=== PATIENT | female | born 1945 | race Caucasian/White ===

== ENCOUNTER 2023-04-10 17:34 | Inpatient (IN) | payer MEDICARE, OTHER ==
[~2023-04-10] VITALS: Ht 162.6 cm; Wt 64.0 kg
[~2023-04-10 17:34] MED LIST: ASPI81TA52 PO; CALC-729 PO; CETI-1 PO; DOCU100C33 PO; DULO30CA52 PO; FERR325T29 PO; IPRA3AMP31 IH; LACT1CAP65 PO; LEVO112T52 PO; LOSA50TA64 PO; METF-1203 PO; METO-384 PO; MULT-1085 PO; PANT40TA39 PO; ROSU10TA28 PO; VIT1TABL95 PO
[2023-04-10 18:42] LABS: BASOPHILS # (AUTO) 0.1 X10'3 (0-0.2); BASOPHILS % (AUTO) 0.6 % (0-1); EOSINOPHILS % (AUTO) 0 % (0-6); LYMPHOCYTES # (AUTO) 0.4 X10'3 (1.1-4.8); LYMPHOCYTES % (AUTO) 3.3 % (21-51); MEAN CORPUSCULAR HEMOGLOBIN 31.6 PG (27.0-31.0); MEAN CORPUSCULAR HGB CONC 31.2 g/dL (33.0-36.5); MEAN CORPUSCULAR VOLUME 101.2 FL (78-98); MEAN PLATELET VOLUME 9.3 FL (7.4-10.4); MONOCYTES # (AUTO) 0.5 X10'3 (0-0.9); MONOCYTES % (AUTO) 4.4 % (2-12); NEUTROPHILS # (AUTO) 11.4 X10'3 (1.8-7.7); NEUTROPHILS % (AUTO) 91.7 % (42-75); PLATELET COUNT 278 X10'3 (140-440); RED CELL DISTRIBUTION WIDTH 16.9 % (11.5-14.5); WHITE BLOOD COUNT 12.4 X10'3 (4.5-11.0)
[2023-04-10 18:49] LABS: HEMATOCRIT 16.1 % (35.0-45.0)
[2023-04-10] MEDS ORDERED: methylPREDNISolone sod succ 125mg/2ml vial IV ONE (18:50)
[2023-04-10] MEDS ORDERED: normal saline 1000ML IV soln IVB ONE (18:50)
[2023-04-10] MEDS ORDERED: albuterol 2.5 MG/3 ML nebule CONTNEB PRN (18:50)
[2023-04-10 18:58] LABS: ALANINE AMINOTRANSFERASE 13 U/L (12-78); ALBUMIN 2.8 G/DL (3.4-5.0); ALBUMIN/GLOBULIN RATIO 0.8 (1.1-1.5); ALKALINE PHOSPHATASE 73 IU/L (46-116); ANION GAP 3 (8-16); ASPARTATE AMINO TRANSFERASE 12 U/L (10-37); BILIRUBIN,TOTAL 0.2 MG/DL (0.1-1.0); BLOOD UREA NITROGEN 29 MG/DL (7-18); BUN/CREATININE RATIO 24.4 (10.0-20.0); CALCIUM 8.9 MG/DL (8.5-10.1); CHLORIDE 89 MMOL/L (99-107); CREATININE 1.19 MG/DL (0.40-0.90); GLUCOSE 352 MG/DL (70-104); POTASSIUM 5.1 MMOL/L (3.5-5.1); SODIUM 123 MMOL/L (135-145); TOTAL CARBON DIOXIDE 31.1 MMOL/L (24-32); TOTAL PROTEIN 6.3 G/DL (6.4-8.2); eCRCL 34 ML/MIN; eGFR 44 ML/MIN
[2023-04-10 19:05] LABS: PRO BRAIN NATRIURETIC PEPTIDE 1388 PG/ML (0-450)
[2023-04-10 19:35] VITALS: PULSE 88; RESP 20; O2SAT 94
[2023-04-10] MEDS ORDERED: cefepime 2g/NS 100ml ADVANTAGE 100 ML IV ONE (20:00)
[2023-04-10] MEDS ORDERED: insulin Lispro (HumaLOG) vial - multi-dose SQ ONE (20:05)
[2023-04-10] MEDS ORDERED: pantoprazole 40mg IV 80 MG in normal saline 100ml IV soln 100 ML IV ONE (20:05)
[2023-04-10 20:12] LABS: OCCULT BLOOD STOOL POSITIVE (Neg)
[2023-04-10] MEDS ORDERED: magnesium hydroxide 30ml (MOM) UD suspension PO PRN (20:40)
[2023-04-10] MEDS ORDERED: magnesium 4gm in 100ml NS 100 ML IV PRN (20:40)
[2023-04-10] MEDS ORDERED: ondansetron/PF 4mg/2ml inj IV PRN (20:40)
[2023-04-10] MEDS ORDERED: pantoprazole 40MG/NS 100ML BAG 100 ML IV ONE ×2 (20:40→20:55)
[2023-04-10] MEDS ORDERED: potassium Cl 20 mEq SR tablet PO PRN ×2 (20:40)
[2023-04-10] MEDS ORDERED: mag hydrox/Alum hydrox/simeth 30ml oral suspension PO PRN (20:40)
[2023-04-10] MEDS ORDERED: magnesium 2GM in 50ml NS 50 ML IV PRN (20:40)
[2023-04-10] MEDS ORDERED: magnesium Cl slow-release 64mg tablet PO PRN (20:40)
[2023-04-10] MEDS ORDERED: potassium Cl 40MEQ/1/2NS 520ml 520 ML IV PRN (20:40)
[2023-04-10] MEDS: normal saline 1000ml 1,000 ML IV SCH (20:40)
[2023-04-10 20:42] VITALS: PULSE 98; RESP 22; O2SAT 100
[2023-04-10] MEDS ORDERED: albuterol 2.5 MG/3 ML nebule NEB PRN (20:45)
[2023-04-10] MEDS ORDERED: dextrose 50%-water 50ml dispensing syringe IV PRN ×2 (20:45)
[2023-04-10] MEDS ORDERED: DEXTROSE 15 GM of carb/4 tabs (each vial/BOTTLE has 4 tablets) PO PRN ×2 (20:45)
[2023-04-10] MEDS ORDERED: MESSAGE TO PHARMACY PO ONE (20:45)
[2023-04-10] MEDS ORDERED: glucagon, human recombinant 1mg kit SUBCUT PRN (20:45)
[2023-04-10] MEDS: pantoprazole 40MG/NS 100ML BAG 100 ML IV SCH (22:00)
[2023-04-10 22:12] VITALS: BP 117/57; PULSE 95; RESP 27; TEMP 98.3
[2023-04-10 22:26] VITALS: BP 136/49; PULSE 96; RESP 30; TEMP 99
[2023-04-10] MEDS ORDERED: diphenhydrAMINE 25mg capsule PO ONE (22:40)
[2023-04-10] MEDS: acetaminophen 325mg tablet PO PRN (22:45)
[2023-04-10 23:16] VITALS: PULSE 97; RESP 24; O2SAT 98
[2023-04-10 23:44] LABS: BASOPHILS % (AUTO) 0 % (0-1); EOSINOPHILS % (AUTO) 0 % (0-6); LYMPHOCYTES # (AUTO) 0.2 X10'3 (1.1-4.8); LYMPHOCYTES % (AUTO) 1.9 % (21-51); MEAN CORPUSCULAR HEMOGLOBIN 31.2 PG (27.0-31.0); MEAN CORPUSCULAR VOLUME 100.6 FL (78-98); MEAN PLATELET VOLUME 9.1 FL (7.4-10.4); MONOCYTES # (AUTO) 0.1 X10'3 (0-0.9); MONOCYTES % (AUTO) 0.8 % (2-12); NEUTROPHILS # (AUTO) 11.5 X10'3 (1.8-7.7); NEUTROPHILS % (AUTO) 97.3 % (42-75); PLATELET COUNT 272 X10'3 (140-440); RED BLOOD COUNT 1.57 X10'6 (4.20-5.60); RED CELL DISTRIBUTION WIDTH 16.1 % (11.5-14.5); WHITE BLOOD COUNT 11.8 X10'3 (4.5-11.0)
[2023-04-10 23:51] LABS: HEMOGLOBIN 4.9 g/dl (12.0-16.0)
[2023-04-10 23:52] LABS: HEMATOCRIT 15.8 % (35.0-45.0)
[2023-04-11] VITALS (29 sets, daily range): BP systolic 143–190; BP diastolic 49–80; PULSE 68–114; RESP 18–48; TEMP 96.8–98.5; O2SAT 92–100
[2023-04-11 01:06] LABS: BILIRUBIN,URINE NEGATIVE (Neg); COLOR,URINE YELLOW (Yellow); GLUCOSE, URINE 500 mg/dl (Neg); KETONES,URINE NEGATIVE (Neg); LEUKOCYTE ESTERASE ,URINE NEGATIVE (Neg); NITRITES, URINE NEGATIVE (Neg); OCCULT BLOOD,URINE NEGATIVE (Neg); PH,URINE 5.5 (4.8-8.0); PROTEIN,URINE NEGATIVE (Neg); UROBILINOGEN,URINE 0.2 E.U/dL (0.2-1.0)
[2023-04-11 01:13] LABS: CLARITY,URINE SLIGHTLY CLOUDY (Clear); UA COLLECTION TYPE STRAIGHT CATH
[2023-04-11 01:14] LABS: RBC,URINE 0-2 /HPF (0-2); WBC,URINE 0-4 /HPF (0-4)
[2023-04-11 01:15] LABS: BACTERIA,URINE FEW /HPF (Neg); MUCUS STRANDS FEW /LPF (Neg); SQUAMOUS EPITHELIAL CELL,UR MODERATE /LPF (FEW)
[2023-04-11] MEDS: pantoprazole 40MG/NS 100ML BAG 100 ML IV SCH ×5 (02:58→22:00)
[2023-04-11] MEDS: pantoprazole 40mg Tablet.DR PO SCH (07:30)
[2023-04-11] MEDS ORDERED: azithromycin/NS 500mg/250ml 250 ML IV ONE ×2 (08:00→21:55)
[2023-04-11] MEDS: K and/or MAG REPLACEMENT MC SCH ×2 (08:00→20:00)
[2023-04-11] MEDS: docusate sod 100mg capsule PO SCH ×2 (08:00→21:04)
[2023-04-11 08:25] LABS: BASOPHILS % (AUTO) 0 % (0-1); EOSINOPHILS % (AUTO) 0 % (0-6); LYMPHOCYTES # (AUTO) 0.3 X10'3 (1.1-4.8); MONOCYTES # (AUTO) 0.2 X10'3 (0-0.9); NEUTROPHILS # (AUTO) 9.4 X10'3 (1.8-7.7)
[2023-04-11 08:28] LABS: LYMPHOCYTES % (AUTO) 2.9 % (21-51); MEAN CORPUSCULAR HEMOGLOBIN 32.3 PG (27.0-31.0); MEAN CORPUSCULAR HGB CONC 32.1 g/dL (33.0-36.5); MEAN CORPUSCULAR VOLUME 100.7 FL (78-98); MEAN PLATELET VOLUME 9.5 FL (7.4-10.4); MONOCYTES % (AUTO) 2.1 % (2-12); PLATELET COUNT 246 X10'3 (140-440); RED BLOOD COUNT 1.45 X10'6 (4.20-5.60); RED CELL DISTRIBUTION WIDTH 17.5 % (11.5-14.5); WHITE BLOOD COUNT 9.9 X10'3 (4.5-11.0)
[2023-04-11 08:55] LABS: HEMATOCRIT 14.6 % (35.0-45.0); HEMOGLOBIN 4.7 g/dl (12.0-16.0)
[2023-04-11] MEDS ORDERED: methylPREDNISolone sod succ 125mg/2ml vial IV ONE (08:55)
[2023-04-11] MEDS ORDERED: furosemide 20 MG/2 ML vial IV ONE ×3 (08:55→19:00)
[2023-04-11 08:56] LABS: ALBUMIN 2.6 G/DL (3.4-5.0); ANION GAP 3 (8-16); BILIRUBIN,TOTAL 0.3 MG/DL (0.1-1.0); BLOOD UREA NITROGEN 36 MG/DL (7-18); BUN/CREATININE RATIO 28.1 (10.0-20.0); CALCIUM 8.8 MG/DL (8.5-10.1); CHLORIDE 92 MMOL/L (99-107); CREATININE 1.28 MG/DL (0.40-0.90); GLUCOSE 391 MG/DL (70-104); MAGNESIUM 2.1 MG/DL (1.5-2.4); POTASSIUM 4.8 MMOL/L (3.5-5.1); SODIUM 125 MMOL/L (135-145); TOTAL CARBON DIOXIDE 30.4 MMOL/L (24-32); TOTAL PROTEIN 5.8 G/DL (6.4-8.2); eCRCL 31 ML/MIN; eGFR 40 ML/MIN
[2023-04-11 08:57] LABS: ALANINE AMINOTRANSFERASE 7 U/L (12-78); ALBUMIN/GLOBULIN RATIO 0.8 (1.1-1.5); ALKALINE PHOSPHATASE 67 IU/L (46-116); ASPARTATE AMINO TRANSFERASE 14 U/L (10-37)
[2023-04-11] MEDS ORDERED: diphenhydrAMINE 50 mg/ml inj IM ONE (12:00)
[2023-04-11] MEDS ORDERED: diphenhydrAMINE 50 mg/ml inj IV ONE (12:00)
[2023-04-11] MEDS ORDERED: APIX5TAB3 (13:07)
[2023-04-11] MEDS: insulin Lispro (HumaLOG) vial - multi-dose SQ SCH ×3 (14:17→23:06)
[2023-04-11] MEDS: ipratropium/albuterol 3ml nebule NEB SCH ×3 (16:01→23:16)
[2023-04-11] MEDS: metoprolol succinate 25mg (24-HOUR) SR. Tablet PO SCH (18:49)
[2023-04-11] MEDS ORDERED: metoprolol succinate 25mg (24-HOUR) SR. Tablet PO ONE (22:35)
[2023-04-11] MEDS: acetaminophen 325mg tablet PO PRN (23:03)
[2023-04-12] VITALS (20 sets, daily range): BP systolic 114–190; BP diastolic 58–82; PULSE 72–104; RESP 16–34; TEMP 97–98; O2SAT 94–99
[2023-04-12 00:52] LABS: BASOPHILS % (AUTO) 0.2 % (0-1); EOSINOPHILS % (AUTO) 0 % (0-6); HEMATOCRIT 27.3 % (35.0-45.0); HEMOGLOBIN 9.2 g/dl (12.0-16.0); LYMPHOCYTES # (AUTO) 0.4 X10'3 (1.1-4.8); LYMPHOCYTES % (AUTO) 2.5 % (21-51); MEAN CORPUSCULAR HEMOGLOBIN 31.3 PG (27.0-31.0); MEAN CORPUSCULAR HGB CONC 33.9 g/dL (33.0-36.5); MEAN CORPUSCULAR VOLUME 92.2 FL (78-98); MEAN PLATELET VOLUME 9.1 FL (7.4-10.4); MONOCYTES # (AUTO) 1.2 X10'3 (0-0.9); NEUTROPHILS % (AUTO) 90.3 % (42-75); PLATELET COUNT 266 X10'3 (140-440); RED BLOOD COUNT 2.96 X10'6 (4.20-5.60); RED CELL DISTRIBUTION WIDTH 16.9 % (11.5-14.5); WHITE BLOOD COUNT 16.6 X10'3 (4.5-11.0)
[2023-04-12] MEDS: pantoprazole 40MG/NS 100ML BAG 100 ML IV SCH ×5 (00:54→21:50)
[2023-04-12] MEDS: ipratropium/albuterol 3ml nebule NEB SCH ×6 (02:30→23:28)
[2023-04-12 06:37] LABS: HEMOGLOBIN 9.4 g/dl (12.0-16.0); MEAN CORPUSCULAR HGB CONC 33.4 g/dL (33.0-36.5); MEAN CORPUSCULAR VOLUME 92.9 FL (78-98); MEAN PLATELET VOLUME 9.4 FL (7.4-10.4); PLATELET COUNT 266 X10'3 (140-440); RED BLOOD COUNT 3.02 X10'6 (4.20-5.60); RED CELL DISTRIBUTION WIDTH 17.2 % (11.5-14.5)
[2023-04-12 07:05] LABS: ALANINE AMINOTRANSFERASE 23 U/L (12-78); ALBUMIN 2.9 G/DL (3.4-5.0); ALBUMIN/GLOBULIN RATIO 0.8 (1.1-1.5); ALKALINE PHOSPHATASE 72 IU/L (46-116); ANION GAP 4 (8-16); ASPARTATE AMINO TRANSFERASE 24 U/L (10-37); BILIRUBIN,TOTAL 0.5 MG/DL (0.1-1.0); BLOOD UREA NITROGEN 33 MG/DL (7-18); BUN/CREATININE RATIO 28.9 (10.0-20.0); CALCIUM 8.9 MG/DL (8.5-10.1); CHLORIDE 94 MMOL/L (99-107); CREATININE 1.14 MG/DL (0.40-0.90); GLUCOSE 224 MG/DL (70-104); POTASSIUM 4.1 MMOL/L (3.5-5.1); SODIUM 133 MMOL/L (135-145); TOTAL CARBON DIOXIDE 35.2 MMOL/L (24-32); TOTAL PROTEIN 6.4 G/DL (6.4-8.2); eCRCL 35 ML/MIN; eGFR 46 ML/MIN
[2023-04-12] MEDS: K and/or MAG REPLACEMENT MC SCH ×2 (07:50→20:12)
[2023-04-12] MEDS: docusate sod 100mg capsule PO SCH ×2 (08:00→20:15)
[2023-04-12] MEDS: metoprolol succinate 25mg (24-HOUR) SR. Tablet PO SCH (08:57)
[2023-04-12] MEDS: pantoprazole 40mg Tablet.DR PO SCH (08:57)
[2023-04-12] MEDS: insulin Lispro (HumaLOG) vial - multi-dose SQ SCH ×3 (09:36→21:46)
[2023-04-12] MEDS: methylPREDNISolone sod succ 125mg/2ml vial IV SCH ×2 (13:30→20:15)
[2023-04-12] MEDS: furosemide 20 MG/2 ML vial IV SCH (13:32)
[2023-04-12] MEDS ORDERED: DIPH25CA83 PO (17:18)
[2023-04-12] MEDS: normal saline 1000ml 1,000 ML IV SCH (20:40)
[2023-04-13] VITALS (25 sets, daily range): BP systolic 99–140; BP diastolic 47–68; PULSE 80–97; RESP 14–22; TEMP 97.4–98.2; O2SAT 93–100
[2023-04-13] MEDS: pantoprazole 40MG/NS 100ML BAG 100 ML IV SCH ×3 (02:25→13:20)
[2023-04-13] MEDS: ipratropium/albuterol 3ml nebule NEB SCH ×6 (03:11→23:34)
[2023-04-13 07:05] LABS: BASOPHILS % (AUTO) 0 % (0-1); EOSINOPHILS % (AUTO) 0 % (0-6); HEMATOCRIT 28.4 % (35.0-45.0); HEMOGLOBIN 9.3 g/dl (12.0-16.0); LYMPHOCYTES # (AUTO) 0.3 X10'3 (1.1-4.8); LYMPHOCYTES % (AUTO) 2.3 % (21-51); MEAN CORPUSCULAR HEMOGLOBIN 30.9 PG (27.0-31.0); MEAN CORPUSCULAR HGB CONC 32.8 g/dL (33.0-36.5); MEAN CORPUSCULAR VOLUME 94.3 FL (78-98); MEAN PLATELET VOLUME 9.3 FL (7.4-10.4); MONOCYTES # (AUTO) 0.4 X10'3 (0-0.9); MONOCYTES % (AUTO) 3.1 % (2-12); NEUTROPHILS # (AUTO) 12.1 X10'3 (1.8-7.7); NEUTROPHILS % (AUTO) 94.6 % (42-75); PLATELET COUNT 276 X10'3 (140-440); RED BLOOD COUNT 3.02 X10'6 (4.20-5.60); RED CELL DISTRIBUTION WIDTH 16.9 % (11.5-14.5); WHITE BLOOD COUNT 12.8 X10'3 (4.5-11.0)
[2023-04-13 07:43] LABS: ALANINE AMINOTRANSFERASE 23 U/L (12-78); ALBUMIN 2.8 G/DL (3.4-5.0); ALBUMIN/GLOBULIN RATIO 0.8 (1.1-1.5); ALKALINE PHOSPHATASE 72 IU/L (46-116); ANION GAP 2 (8-16); ASPARTATE AMINO TRANSFERASE 21 U/L (10-37); BILIRUBIN,TOTAL 0.4 MG/DL (0.1-1.0); BLOOD UREA NITROGEN 29 MG/DL (7-18); BUN/CREATININE RATIO 27.1 (10.0-20.0); CALCIUM 8.7 MG/DL (8.5-10.1); CHLORIDE 96 MMOL/L (99-107); CREATININE 1.07 MG/DL (0.40-0.90); GLUCOSE 237 MG/DL (70-104); MAGNESIUM 2.1 MG/DL (1.5-2.4); POTASSIUM 4.4 MMOL/L (3.5-5.1); SODIUM 135 MMOL/L (135-145); TOTAL CARBON DIOXIDE 36.7 MMOL/L (24-32); TOTAL PROTEIN 6.1 G/DL (6.4-8.2); eCRCL 37 ML/MIN; eGFR 50 ML/MIN
[2023-04-13] MEDS: K and/or MAG REPLACEMENT MC SCH ×2 (08:00→20:00)
[2023-04-13] MEDS: metoprolol succinate 25mg (24-HOUR) SR. Tablet PO SCH (08:00)
[2023-04-13] MEDS: docusate sod 100mg capsule PO SCH ×2 (08:08→20:51)
[2023-04-13] MEDS: methylPREDNISolone sod succ 125mg/2ml vial IV SCH ×2 (08:10→20:51)
[2023-04-13] MEDS: furosemide 20 MG/2 ML vial IV SCH (08:10)
[2023-04-13] MEDS: insulin Lispro (HumaLOG) vial - multi-dose SQ SCH ×3 (09:38→21:42)
[2023-04-13] MEDS ORDERED: MIDAZolam 1 MG/ML 5ML VIAL ONE ×2 (15:48)
[2023-04-13] MEDS ORDERED: LIDOcaine Viscous 15ml cup ONE (15:48)
[2023-04-13] MEDS ORDERED: fentaNYL/PF 50MCG/1 ML 2ML syringe ONE (15:48)
[2023-04-14] VITALS (13 sets, daily range): BP systolic 129–182; BP diastolic 60–69; PULSE 86–102; RESP 16–28; TEMP 97.6–97.8; O2SAT 97–100
[2023-04-14] MEDS: ipratropium/albuterol 3ml nebule NEB SCH ×4 (02:58→14:29)
[2023-04-14] MEDS ORDERED: pantoprazole 40mg Tablet.DR PO SCH (07:30)
[2023-04-14 07:42] LABS: BASOPHILS % (AUTO) 0 % (0-1); EOSINOPHILS % (AUTO) 0.1 % (0-6); HEMATOCRIT 33.5 % (35.0-45.0); HEMOGLOBIN 10.4 g/dl (12.0-16.0); LYMPHOCYTES # (AUTO) 0.4 X10'3 (1.1-4.8); LYMPHOCYTES % (AUTO) 2.3 % (21-51); MEAN CORPUSCULAR HEMOGLOBIN 30.3 PG (27.0-31.0); MEAN CORPUSCULAR HGB CONC 30.9 g/dL (33.0-36.5); MEAN CORPUSCULAR VOLUME 98.1 FL (78-98); MEAN PLATELET VOLUME 9.3 FL (7.4-10.4); MONOCYTES # (AUTO) 0.9 X10'3 (0-0.9); MONOCYTES % (AUTO) 5.6 % (2-12); NEUTROPHILS # (AUTO) 15.4 X10'3 (1.8-7.7); PLATELET COUNT 257 X10'3 (140-440); RED BLOOD COUNT 3.42 X10'6 (4.20-5.60); RED CELL DISTRIBUTION WIDTH 17.1 % (11.5-14.5); WHITE BLOOD COUNT 16.7 X10'3 (4.5-11.0)
[2023-04-14] MEDS: K and/or MAG REPLACEMENT MC SCH (08:00)
[2023-04-14] MEDS: metoprolol succinate 25mg (24-HOUR) SR. Tablet PO SCH (08:10)
[2023-04-14] MEDS: docusate sod 100mg capsule PO SCH (08:10)
[2023-04-14] MEDS: methylPREDNISolone sod succ 125mg/2ml vial IV SCH (08:10)
[2023-04-14] MEDS: furosemide 20 MG/2 ML vial IV SCH (08:10)
[2023-04-14 08:25] LABS: ALANINE AMINOTRANSFERASE 20 U/L (12-78); ALBUMIN 2.9 G/DL (3.4-5.0); ALKALINE PHOSPHATASE 75 IU/L (46-116); ANION GAP 6 (8-16); ASPARTATE AMINO TRANSFERASE 28 U/L (10-37); BILIRUBIN,TOTAL 0.6 MG/DL (0.1-1.0); BLOOD UREA NITROGEN 27 MG/DL (7-18); BUN/CREATININE RATIO 24.8 (10.0-20.0); CALCIUM 9.1 MG/DL (8.5-10.1); CHLORIDE 96 MMOL/L (99-107); CREATININE 1.09 MG/DL (0.40-0.90); GLUCOSE 248 MG/DL (70-104); MAGNESIUM 2.3 MG/DL (1.5-2.4); POTASSIUM 4.6 MMOL/L (3.5-5.1); SODIUM 131 MMOL/L (135-145); eCRCL 37 ML/MIN; eGFR 49 ML/MIN
[2023-04-14 08:54] LABS: ALBUMIN/GLOBULIN RATIO 0.8 (1.1-1.5); TOTAL PROTEIN 6.5 G/DL (6.4-8.2)
[2023-04-14] MEDS: insulin Lispro (HumaLOG) vial - multi-dose SQ SCH (10:08)
[2023-04-14] MEDS ORDERED: PRED10TA23 PO (10:41)
== END 2023-04-14 15:36 | disposition home or self-care (01) | DRG 377 ==
LOC: ER 17:34 → ED HOLD 20:42 → PCU 3S 04-11 08:35
PROVIDERS: ADMIT Internal Medicine; ATTEND Internal Medicine
PROC: 30233N1 Transfusion of Nonautologous Red Blood Cells into Peripheral Vein, Percutaneous Approach (ICD-10-PCS; 2023-04-10)
PROC: 5A09457 Assistance with Respiratory Ventilation, 24-96 Consecutive Hours, Continuous Positive Airway Pressure (ICD-10-PCS; 2023-04-10)
PROC: 0DB98ZX Excision of Duodenum, Via Natural or Artificial Opening Endoscopic, Diagnostic (ICD-10-PCS; principal; 2023-04-13)
PROC: 0DB78ZX Excision of Stomach, Pylorus, Via Natural or Artificial Opening Endoscopic, Diagnostic (ICD-10-PCS; 2023-04-13)
DX: K92.2 Gastrointestinal hemorrhage, unspecified (principal); I50.33 Acute on chronic diastolic (congestive) heart failure; J96.01 Acute respiratory failure with hypoxia; E87.1 Hypo-osmolality and hyponatremia; J44.1 Chronic obstructive pulmonary disease with (acute) exacerbation; N17.9 Acute kidney failure, unspecified; I11.0 Hypertensive heart disease with heart failure; D64.9 Anemia, unspecified; Z66 Do not resuscitate; E03.9 Hypothyroidism, unspecified; M19.90 Unspecified osteoarthritis, unspecified site; K44.9 Diaphragmatic hernia without obstruction or gangrene; F17.200 Nicotine dependence, unspecified, uncomplicated; E11.9 Type 2 diabetes mellitus without complications; Z90.11 Acquired absence of right breast and nipple; Z85.3 Personal history of malignant neoplasm of breast; Z90.49 Acquired absence of other specified parts of digestive tract; Z86.73 Personal history of transient ischemic attack (TIA), and cerebral infarction without residual deficits; Z79.899 Other long term (current) drug therapy; Z79.82 Long term (current) use of aspirin
CPT/HCPCS: 36415; 36430; 43239; 71045; 80053; 81001; 82272; 82948; 83605; 83735; 83880; 84132; 84484; 85025; 85027; 86078; 86885; 86900; 86901; 86920; 87040; 87502; 87503; 88305; 93306; 94640; 94660; 94760; 99152; 99285; A4314; A4353; A4615; A4620; A6258; A7015; C9113; G0378; J0456; J0692; J1200; J1815; J1940; J2250; J2930; J3010; J7030; J7040; P9016; Q0163

== ENCOUNTER 2023-05-29 07:23 | Day surgery (SDC) | payer MEDICARE ==
[~2023-05-29] VITALS: Ht 168.9 cm; Wt 61.4 kg
[~2023-05-29 07:23] MED LIST changes: +APIX5TAB3; +DIPH25CA83 PO
[2023-05-29] MEDS ORDERED: LOSA100T58 (07:42)
[2023-05-29] MEDS ORDERED: BACI1CAP6 PO (07:42)
[2023-05-29 07:54] VITALS: BP 171/68; PULSE 110; RESP 27
[2023-05-29] MEDS ORDERED: MIDAZolam 1 MG/ML 5ML VIAL ONE (09:06)
[2023-05-29] MEDS ORDERED: fentaNYL/PF 50MCG/1 ML 2ML syringe ONE (09:06)
[2023-05-29] MEDS ORDERED: diphenhydrAMINE 50 mg/ml inj ONE (09:19)
[2023-05-29 09:51] VITALS: BP 165/79; PULSE 115; RESP 24; O2SAT 100
[2023-05-29 10:01] VITALS: BP 171/59; PULSE 109; RESP 26; O2SAT 100
[2023-05-29 10:11] VITALS: BP 156/54; PULSE 97; RESP 21; O2SAT 100
[2023-05-29 10:21] VITALS: BP 145/55; PULSE 97; RESP 18; O2SAT 100
== END 2023-05-29 10:30 | disposition home or self-care (01) ==
LOC: GI LAB 07:23
PROVIDERS: ATTEND Internal Medicine Gastroenterology
DX: D50.9 Iron deficiency anemia, unspecified (principal); D12.3 Benign neoplasm of transverse colon; I10 Essential (primary) hypertension; E11.9 Type 2 diabetes mellitus without complications; J44.9 Chronic obstructive pulmonary disease, unspecified; I48.91 Unspecified atrial fibrillation; Z85.3 Personal history of malignant neoplasm of breast; Z86.73 Personal history of transient ischemic attack (TIA), and cerebral infarction without residual deficits
CPT/HCPCS: 45385; J1200; J2250; J3010; J7030; Z7512; 45380; 88305; 99152; 99153; A4620; G0500